=== PATIENT | female | born 2005 | race Caucasian/White ===

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

== ENCOUNTER 2025-02-17 10:52 | Outpatient (AMB) | payer OTHER, SELFPAY ==
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
[2025-02-17 11:00] VITALS: BP 110/62; PULSE 72; TEMP 36.9; O2SAT 98; BMI 20.5
== END 2025-02-17 11:58 | disposition home or self-care (01) ==
PROVIDERS: PCP Physician Assistant; Visit Provider Physician Assistant
DX: R22.0 Localized swelling, mass and lump, head (principal); R22.1 Localized swelling, mass and lump, neck; V09.9XXA Pedestrian injured in unspecified transport accident, initial encounter; F41.9 Anxiety disorder, unspecified

== ENCOUNTER → 2025-02-17 10:52 | Outpatient (BNVA) | payer OTHER, SELFPAY | PROVIDERS: PCP Physician Assistant; Visit Provider Physician Assistant | DX: R22.0 Localized swelling, mass and lump, head (principal); R22.1 Localized swelling, mass and lump, neck; F41.9 Anxiety disorder, unspecified | CPT/HCPCS: 99212 ==